=== PATIENT | male | born 1965 | race Caucasian/White ===

== ENCOUNTER 2017-01-19 22:42 | Inpatient (IN) | payer OTHER ==
[~2017-01-19] VITALS: Ht 185.4 cm; Wt 81.6 kg
[2017-01-19 23:39] LABS: *AMPHETAMINE, URINE NEGATIVE (NEGATIVE); *BARBITURATE, URINE NEGATIVE (NEGATIVE); *CANNABINOID, URINE NEGATIVE (NEGATIVE); *COCCAINE, URINE NEGATIVE (NEGATIVE); *OPIATE, URINE NEGATIVE (NEGATIVE); *PHENCYCLIDINE SCREEN,URINE NEGATIVE (NEGATIVE)
[2017-01-20] MEDS ORDERED: LORAZEPAM 1 MG TABLET PO PRN ×2
[2017-01-20] MEDS ORDERED: LOPERAMIDE HCL 2 MG CAPSULE PO PRN ×2
[2017-01-20] MEDS ORDERED: DICYCLOMINE HCL 20 MG TABLET PO PRN
[2017-01-20] MEDS ORDERED: diphenhydrAMINE 50 MG CAPSULE PO PRN
[2017-01-20] MEDS ORDERED: IBUPROFEN 400 MG TABLET PO PRN
[2017-01-20] MEDS ORDERED: MAGNESIUM HYDROXIDE 30 ML LIQUID UDC PO PRN
[2017-01-20] MEDS ORDERED: LORAZEPAM 2 MG/1 ML VIAL IM PRN
[2017-01-20] MEDS ORDERED: MAG HYDROX/AL HYDROX/SIMETH 30 ML LIQUID UDC PO PRN
[2017-01-20] MEDS ORDERED: CLONIDINE HCL 0.1 MG TABLET PO PRN
--- NOTE | 2017-01-20 | NUR ---
ADMISSION NOTE : Pt. is 51 years old male, admitted on 01/19/2017 at 23:50 to [facility] for medically supervised withdrawal from alcohol. Pt. drinks VODKA 500ml PO QD since 12/2016, last dose is 200ml today, pt. states to use alcohol since 2011. Pt. is Full Code , on Reg.diet, NKA for meds and food. Pt. was able to provide urine drug screen - negative, blood alcohol level is increased- see PC chart for details. His Primary care Provider is from [facility]. Pt. denies falls within past 12 months, denies hospitalizations within past 30 days, denies history of seizures, refused vaccinations for years. Pt. confirms history of visual hallucinations when intoxicated, last one was on 01/17/2017. Education provided on substance abuse, fall risk, Hep.C. Pt. was oriented to his room and the unit, encourage to notify staff with any concern. Pt. takes Viagra as only one prescribed home medication. Upon admission YG=669/95, HR=86, Temp=98.2, RR=16, SpO2=98% with RA, Pipzrr=[id number], Height=6'1'', denies any pain, CIWA=3. Pupils are 3-4mm with a good reaction to the light, Skin is warm and dry, no visible tremor observed. Pt. denies nausea, vomiting and diarrhea. Safety measures in place : bed on lowest position with side rails x2 up for safety, call light within reach. Will continue to monitor closely and offer help. Substance Abuse History as follow : Vodka 500ml POQD s 12/2016, last dose on 01/19/2017. Pt. uses alcohol since 2011. He doesn't smoke and doesn't use drugs. Tx History : x2 detox. Attempts, last one in January 2016 in [place], 3 days, left AMA. Past Medical History : pt. denies any. Family History : ETOH abuse by father.
[2017-01-20 01:14] LABS: BASOPHILS % (AUTO) 0.7 % (0.0-2.0); EOSINOPHILS # (AUTO) 0.1 K/uL (0.0-0.7); EOSINOPHILS % (AUTO) 2.3 % (0.0-7.0); HEMATOCRIT 41.1 % (40.0-50.0); HEMOGLOBIN 14.4 g/dL (14.0-18.0); LYMPHOCYTES # (AUTO) 0.7 K/uL (0.8-4.8); LYMPHOCYTES % (AUTO) 25.6 % (20.5-51.5); MEAN CORPUSCULAR HEMOGLOBIN 32.4 uug (27.0-31.0); MEAN CORPUSCULAR HGB CONC 35 g/dL (32.0-37.0); MEAN CORPUSCULAR VOLUME 92.3 fL (82.0-92.0); MONOCYTES # (AUTO) 0.3 K/uL (0.1-1.30); MONOCYTES % (AUTO) 13.4 % (0.0-11.0); NEUTROPHILS # (AUTO) 1.5 K/uL (1.8-8.9); PLATELET COUNT (AUTO) 90 K/uL (150-450); RED BLOOD CELL COUNT(AUTO) 4.46 MIL/uL (4.70-6.10); RED CELL DISTRIBUTION WIDTH 15.3 % (11.5-14.5); WHITE BLOOD COUNT (AUTO) 2.6 K/uL (4.0-11.2)
[2017-01-20 01:22] LABS: ALBUMIN 4.1 g/dL (3.4-5.0); BILIRUBIN,TOTAL 0.9 mg/dL (0.2-1.0); CALCIUM 8.5 mg/dL (8.5-10.1); CREATININE 0.8 mg/dL (0.6-1.3); MAGNESIUM 1.6 mg/dL (1.8-2.4); POTASSIUM 3.8 mmol/L (3.5-5.1); TOTAL PROTEIN, SERUM 7.2 g/dL (6.4-8.2)
[2017-01-20] MEDS ORDERED: SILD100T PO (01:31)
[2017-01-20 01:33] LABS: THYROID STIMULATING HORMONE 0.46 mIU/mL (0.358-3.740)
[2017-01-20 01:35] LABS: HIV-1 p24 ANTIGEN NON REACTIVE (NONREACTIVE); HIV-1/2 ANTIBODY NON REACTIVE (NONREACTIVE)
[2017-01-20 02:30] LABS: EOSINOPHILS % (MANUAL) 2 % (0-8); LYMPHOCYTES % (MANUAL) 26 % (20-40); MONOCYTES % (MANUAL) 14 % (2-10); NEUTROPHILS % (MANUAL) 58 % (42-75)
[2017-01-20 02:31] LABS: ANISOCYTOSIS 1+; PLATELET ESTIMATE DECREASED
[2017-01-20 04:00] VITALS: BP 121/74
[2017-01-20] MEDS ORDERED: MAGNESIUM OXIDE 400 MG TABLET PO ONE (06:00)
[2017-01-20] MEDS ORDERED: THIAMINE HCL 200 MG/2 ML VIAL IM ONE (06:00)
--- NOTE | 2017-01-20 06:41 | NUR ---
END OF SHIFT NOTE : Pt. is 51 years old male, admitted on 01/19/2017 at 23:50 to [facility] for medically supervised withdrawal from alcohol. Pt. drinks VODKA 500ml PO QD since 12/2016, last dose is 200ml today, pt. states to use alcohol since 2011. Pt. is Full Code , on Reg.diet, NKA for meds and food. Pt. was able to provide urine drug screen - negative, blood alcohol level is increased- see PC chart for details Pt. confirms history of visual hallucinations when intoxicated, last one was on 01/17/2017. Pt remains compliant with the treatment plan. Pt denies nausea, vomiting and diarrhea. No PRNs were given during my shift. One time orders VitB IM and Po292ru given as ordered (Mg level was 1.6)V/S remain WNL. RR=16, even and unlabored, lungs clear upon auscultation, abdomen soft and non- distended. Pt denies nausea, vomiting and diarrhea. LAST CIWA= at 0400 , INTAKE= 100ml, voided x 1, slept 6 hours. Safety measures in place : bed on lowest position with side rails x2 up for safety, call light within reach. Will continue to monitor closely and offer help.
--- NOTE | 2017-01-20 07:41 | NUR ---
START OF SHIFT NOTE: Received report from warehouse worker 2nd shift nurse. Pt is a 51 yo male admitted 01-19-17 for ETOH dependence. Pt is on prn's only at this time. Pt is alert and oriented X4. Color good, skin warm and dry. Respirations even and unlabored. Safety precautions observed. call light within reach. Will continue to monitor.
[2017-01-20 08:00] VITALS: BP 135/86
[2017-01-20] MEDS ORDERED: TUBERCULIN,PURIF.PROT.DERIV. 5 TU/0.1 ML TEST ID ONE (09:00)
--- NOTE | 2017-01-20 09:00 | NUR ---
TB test administered LFA
[2017-01-20] MEDS: THIAMINE HCL 100 MG TABLET PO SCH (09:06)
[2017-01-20] MEDS: MULTIVITAMINS,THERAPEUTIC TABLET PO SCH (09:06)
[2017-01-20] MEDS: FOLIC ACID 1 MG TABLET PO SCH (09:07)
--- NOTE | 2017-01-20 09:15 | NUR ---
Pt c/o severe anxiety. Tremors noted. CIWA 8 Ativan 1mg po prn administered.
--- NOTE | 2017-01-20 09:54 | NUR ---
Pt states anxiety has improved after Ativan 1mg po prn. CIWA 6
--- NOTE | 2017-01-20 11:30 | NUR ---
Pt started on Ativan taper. CIWA 12 Ativan 2mg po administered.
[2017-01-20] MEDS: LORAZEPAM 1 MG TABLET PO SCH ×3 (11:42→20:35)
[2017-01-20 12:58] VITALS: BP 120/72
[2017-01-20] MEDS ORDERED: LORAZEPAM 1 MG TABLET PO SCH (13:00)
[2017-01-20] MEDS ORDERED: TRAZODONE 50 MG TABLET PO PRN (14:30)
[2017-01-20 18:40] VITALS: BP 120/72
--- NOTE | 2017-01-20 19:13 | NUR ---
END OF SHIFT NOTE: Report given to night club manager nurse. Pt is a 51 yo male admitted 01-19-17 for ETOH dependence. Pt started on 5 day Ativan taper. Tolerating well. Pt is alert and oriented X4. Color good, skin warm and dry. Respirations even and unlabored. Vital signs have remained stable throughout shift. Last CIWA 10 @ 1500. Pt given Ativan 1 mg po prn @ 0915. Safety precautions observed. call light within reach.
--- NOTE | 2017-01-20 19:37 | NUR ---
RN note PRN Trazodone Pt verbalized "I have not slept in 5 days. I want to take the Trazodone now." Pt noted to be slightly anxious and with gross tremors observed. Administered Trazodone 50 mg PO. No SOB noted. Will monitor and reassess.
[2017-01-20 20:00] VITALS: BP 117/77
--- NOTE | 2017-01-20 20:00 | NUR ---
Start of Shift Patient is a 51-year old, male, admitted for ETOH dependence, drinking 500 ml of Vodka daily prior to admission. Pt started 01/20/2017on 5-day Ativan, tolerates well. Pt is AAOx4, no SOB noted. Pt with anxiety . With gross tremors observed. No skin issues. Pt is ambulatory with steady gait. Fall, universal and safety prec implemented. Call light within reach. Kept pt warm, dry and comfortable. Latest CIWA=9. Will monitor.
[2017-01-21] VITALS: BP 124/83
[2017-01-21] MEDS ORDERED: diphenhydrAMINE 50 MG CAPSULE PO PRN (01:15)
[2017-01-21] MEDS: HYDROXYZINE PAMOATE 25 MG CAPSULE PO PRN ×2 (01:24→11:22)
--- NOTE | 2017-01-21 01:24 | NUR ---
MD Communication and ONE TIME BENADRYL and PRN Vistaril: Pt stated that he is unable to sleep. Trazodone PRN ineffective. MD made aware with new order for 50mg Benadryl ONE TIME. New order noted and carried out. Pt also expressed anxiety due to being unable to sleep. Pt stated that he usually has episodes of inability to sleep during the first 2-3 days of detox. Vistaril PRN given as ordered. Will continue to monitor.
--- NOTE | 2017-01-21 02:50 | NUR ---
RN note reassess Pt asleep on bed, with no facial grimacing nor SOB noted.
[2017-01-21 04:00] VITALS: BP 132/86
--- NOTE | 2017-01-21 07:16 | NUR ---
End of Shift Patient is a 51-year old, male, admitted for ETOH dependence, drinking 500 ml of Vodka daily prior to admission. Pt started 01/20/2017on 5-day Ativan, tolerates well. Pt is AAOx4, no SOB noted. Pt with anxiety . With gross tremors observed. No skin issues. Pt is ambulatory with steady gait. Fall, universal and safety prec implemented. Call light within reach. Kept pt warm, dry and comfortable. Latest CIWA=6, slept for 9 hours. Endorsed to AM shift nurse for continuity of care.
--- NOTE | 2017-01-21 07:20 | NUR ---
Start of Shift Report from the night nurse: pt is 51 y/o male her for Etoh r/t Vodka 500mL/d; 5 day Ativan taper ordered and started 01/20/17. Pt is a full code, regular diet, NKA, fall and seizure precautions ordered. HHx: relapsed and detox x2 at other facilities. V/S stable. Skin is intact. PRN Trazodone and Benadryl given last night for sleep. No new orders or abnormal labs endorsed to me. Last CIWA 6. Pt is asleep in room. Will cont. to monitor the pt.
[2017-01-21 08:00] VITALS: BP 123/97
[2017-01-21 08:49] LABS: BASOPHILS # (AUTO) 0.1 K/uL (0.0-0.2); BASOPHILS % (AUTO) 1.7 % (0.0-2.0); EOSINOPHILS # (AUTO) 0.1 K/uL (0.0-0.7); EOSINOPHILS % (AUTO) 2.3 % (0.0-7.0); HEMATOCRIT 41.3 % (40.0-50.0); HEMOGLOBIN 14.2 g/dL (14.0-18.0); LYMPHOCYTES # (AUTO) 0.8 K/uL (0.8-4.8); LYMPHOCYTES % (AUTO) 22.9 % (20.5-51.5); MEAN CORPUSCULAR HEMOGLOBIN 32.2 uug (27.0-31.0); MEAN CORPUSCULAR HGB CONC 35 g/dL (32.0-37.0); MEAN CORPUSCULAR VOLUME 93.5 fL (82.0-92.0); MONOCYTES # (AUTO) 0.5 K/uL (0.1-1.30); MONOCYTES % (AUTO) 13.3 % (0.0-11.0); NEUTROPHILS % (AUTO) 59.8 % (38.5-71.5); PLATELET COUNT (AUTO) 96 K/uL (150-450); RED BLOOD CELL COUNT(AUTO) 4.42 MIL/uL (4.70-6.10); RED CELL DISTRIBUTION WIDTH 15.5 % (11.5-14.5)
--- NOTE | 2017-01-21 08:50 | NUR ---
PRN Medication Administration Pt c/o MARRERO 02/20 pain; PRN Motrin 600mg PO given as ordered. Will reassess in 1H. Addendum: 01/21/17 at 1721 by ROSALBA MURGUIA RN ERROR: Tylenol 650mg given PRN for MARRERO.
[2017-01-21] MEDS: LORAZEPAM 1 MG TABLET PO SCH ×3 (08:51→21:17)
[2017-01-21] MEDS: MULTIVITAMINS,THERAPEUTIC TABLET PO SCH (08:51)
[2017-01-21] MEDS: ACETAMINOPHEN 325 MG TABLET PO PRN (08:51)
[2017-01-21] MEDS: FOLIC ACID 1 MG TABLET PO SCH (08:51)
[2017-01-21 09:06] LABS: WHITE BLOOD COUNT (AUTO) 3.5 K/uL (4.0-11.2)
[2017-01-21 09:07] LABS: ALBUMIN 3.8 g/dL (3.4-5.0); BILIRUBIN,DIRECT 0.3 mg/dL (0.0-0.2); BILIRUBIN,TOTAL 1.5 mg/dL (0.2-1.0); CALCIUM 9.2 mg/dL (8.5-10.1); CREATININE 0.8 mg/dL (0.6-1.3); MAGNESIUM 1.4 mg/dL (1.8-2.4); PHOSPHOROUS 3.6 mg/dL (2.5-4.9); POTASSIUM 3.4 mmol/L (3.5-5.1); TOTAL PROTEIN, SERUM 6.9 g/dL (6.4-8.2)
--- NOTE | 2017-01-21 09:50 | NUR ---
Reassessment Pt is in room resting in bed and denies MARRERO or pain; Ibuprofen is effective. Will cont. to monitor the pt. Addendum: 01/21/17 at 1723 by ROSALBA MURGUIA RN ERROR: Tylenol 650mg given PRN at 0850am and is effective since pt denies pain .
[2017-01-21 09:59] LABS: BAND % (MANUAL) 5 % (0-10); EOSINOPHILS % (MANUAL) 3 % (0-8); LYMPHOCYTES % (MANUAL) 25 % (20-40); METAMYELOCYTES % 1 % (0-1); MONOCYTES % (MANUAL) 11 % (2-10); NEUTROPHILS % (MANUAL) 55 % (42-75)
[2017-01-21 10:01] LABS: ANISOCYTOSIS 1+; PLATELET ESTIMATE DECRE
[2017-01-21 10:02] LABS: STOMATOCYTES 2+
[2017-01-21] MEDS ORDERED: MAGNESIUM OXIDE 400 MG TABLET PO ONE ×2 (10:15→21:00)
[2017-01-21] MEDS ORDERED: POTASSIUM CHLORIDE 20 MEQ TAB.PRT.SR PO ONE (10:15)
[2017-01-21] MEDS: THIAMINE HCL 100 MG TABLET PO SCH (11:22)
--- NOTE | 2017-01-21 11:30 | NUR ---
PRN Medication Administration Pt is in room with tremors, very anxious, agitated and irritable since he wants to know the psychiatrist schedule time to see him since he wants a new medication to help him sleep tonight; I notified Dr. Lazar and Dr. Sethi and PRN Vistaril 50mg given to pt for the first time so educated the pt on the actions and the SE's of the medication. Will reassess in 1 hour.
[2017-01-21 12:00] VITALS: BP 118/81
--- NOTE | 2017-01-21 12:30 | NUR ---
Reassessment Pt is room resting in bed and watching TV while snacking & waiting for lunch, no nonverbal cues of anxiety or irritability present; Vistaril is effective. Will cont. to monitor the pt.
[2017-01-21] MEDS ORDERED: HYDROXYZINE PAMOATE 25 MG CAPSULE PO PRN (13:15)
--- NOTE | 2017-01-21 14:45 | NUR ---
PRN Medication Administration Pt is lying in bed very agitated with observed tremors present, flushed, V/S stable yet HR 102 with anxiety, c/o not seeing the psychiatrist and is extremely worried about not getting a medication for sleep tonight; I encouraged the pt to do relaxation techniques, repeat x3 the explanation of the Dr. Sethi's daily eval. required, PRN Clonidine 0.1mg given with ordered Ativan taper and scheduled 1500 medications. Will reassess in 1H.
[2017-01-21] MEDS: GABAPENTIN 300 MG CAPSULE PO SCH (14:47)
[2017-01-21] MEDS ORDERED: QUETIAPINE FUMARATE 25 MG TABLET PO ONE (15:15)
--- NOTE | 2017-01-21 15:15 | NUR ---
New Orders-Seroquel New orders for Seroquel 25mg ONCE and given as ordered for the pt's anxiety, irritability & agitation per Dr. Sethi and given with 1500H scheduled meds. New orders for D/C Trazodone HS and start Seroquel 100mg PO HS, will endorse to night nurse. Will reassess in 1H.
[2017-01-21 16:00] VITALS: BP 112/77
--- NOTE | 2017-01-21 16:15 | NUR ---
Reassessment Pt is in room relaxed in bed and watching TV, no tremors or irritability and no non-verbal s/sx of anxiety present; Seroquel is effective. Will cont. to monitor the pt.
--- NOTE | 2017-01-21 19:31 | NUR ---
End of Shift Report to the night nurse: pt is 51 y/o male her for Etoh r/t Vodka 500mL/d; 5 day Ativan taper ordered and started 01/20/17. Pt is a full code, regular diet, NKA, fall and seizure precautions ordered. HHx: Non-Smoker, relapsed and detox x2 at other facilities. V/S stable. Skin is intact. PRN Tylenol given for MARRERO at 0900, Vistaril at 1120 am, clonidine 1445 and Seroquel 25mg at 1515pm. New Orders for Seroquel 25mg ONCE for sever anxiety and 100mg HS; endorsed to night nurse to give medications effective for sleep and new orders for Vistaril HS per Dr. Lazar. Pt denies chest pain and no SOB present. No hallucinations, delusions or suicidal ideations present. Pt did not attend group therapy or activities during my shift. Last CIWA 8
[2017-01-21 20:00] VITALS: BP 106/76
--- NOTE | 2017-01-21 20:00 | NUR ---
2000 Patient received resting comfortably with eyes closed and respirations quiet, unlabored at 16. Patient aroused easily for nurse assess and vital signs. Patient responds to nurse's greeting and introduction with a smile and, " Hi, how are you doing? I'm just so tired, I just want to rest". Patient's color is pink and his skin is clean, warm, dry and intact. Patient is oriented to person, place, day, date and his personal situation. Easily reoriented to time. Patient's lung sounds are clear bilaterally and active bowel sounds are noted X 4 abdominal Quads, per auscultation. Vital signs are: 98-88-16 106/78, O2 Sat 95%, CIWA 4. Patient denies any pain or other discomforts presently, and he states that he has eaten a little food from his trays today and he's taking fluids ad rajesh with no gastric issues so far. Patient was admitted on 01/19/17 for Alcohol (vodka) withdrawal and he is currently on a 5-Day Ativan medication taper, which he is apparently tolerating well. Patient offer no c/o any pain or discomfort at this time. Bed is locked and in lowest position, bed rails are up X 2 and call light within patient's easy reach. Patient's condition is stable at this time.
[2017-01-21] MEDS ORDERED: GABAPENTIN 300 MG CAPSULE PO SCH (21:00)
[2017-01-21] MEDS ORDERED: QUETIAPINE FUMARATE 100 MG TABLET PO SCH (21:00)
[2017-01-22] VITALS: BP 101/68
--- NOTE | 2017-01-22 | NUR ---
Patient refused V/S to be done at this time, when his V/S were taken at 1999. Patient is sleeping at this time. Respirations unlabored at 14.
[2017-01-22 03:06] LABS: HEPATITIS B CORE AB, IgM Negative (Negative); HEPATITIS B SURFACE AG Negative (Negative)
--- NOTE | 2017-01-22 06:30 | NUR ---
0630 Patient slept a total of 10 hours and 15 minutes. Total intake was 300 ml p.o. and he had 1 void and no stools at bathroom. No prn medications given this shift. V/SS afebrile, CIWA 4. Patient is presently resting comfortably with eyes closed and respirations even, unlabored at 14. Patient is in stable condition at this time.
[2017-01-22 07:15] LABS: ALBUMIN 3.7 g/dL (3.4-5.0); BILIRUBIN,DIRECT 0.3 mg/dL (0.0-0.2); BILIRUBIN,TOTAL 1.4 mg/dL (0.2-1.0); CALCIUM 9.5 mg/dL (8.5-10.1); CREATININE 0.9 mg/dL (0.6-1.3); MAGNESIUM 1.8 mg/dL (1.8-2.4); PHOSPHOROUS 4.3 mg/dL (2.5-4.9); POTASSIUM 4.1 mmol/L (3.5-5.1); TOTAL PROTEIN, SERUM 6.7 g/dL (6.4-8.2)
--- NOTE | 2017-01-22 07:15 | NUR ---
Start of Shift Report from the night nurse with update: pt is 51 y/o male her for Etoh r/t Vodka 500mL/d; 5 day Ativan taper ordered and started 01/20/17. Pt is a full code, regular diet, NKA, fall and seizure precautions ordered. HHx: relapsed and detox x2 at other facilities. V/S stable. Skin is intact. Scheduled Seroquel 100mg and PRN Benadryl given again last night for sleep. No new orders or abnormal labs endorsed to me. Last CIWA 4. Pt is awake in room in bed watching television. Will cont. to monitor the pt.
[2017-01-22 07:22] LABS: BASOPHILS % (AUTO) 0.7 % (0.0-2.0); EOSINOPHILS # (AUTO) 0.2 K/uL (0.0-0.7); EOSINOPHILS % (AUTO) 3.6 % (0.0-7.0); HEMATOCRIT 39.9 % (40.0-50.0); HEMOGLOBIN 14.1 g/dL (14.0-18.0); LYMPHOCYTES % (AUTO) 23.8 % (20.5-51.5); MEAN CORPUSCULAR HEMOGLOBIN 33.4 uug (27.0-31.0); MEAN CORPUSCULAR HGB CONC 36 g/dL (32.0-37.0); MEAN CORPUSCULAR VOLUME 94.3 fL (82.0-92.0); MONOCYTES # (AUTO) 0.3 K/uL (0.1-1.30); MONOCYTES % (AUTO) 8.2 % (0.0-11.0); NEUTROPHILS # (AUTO) 2.7 K/uL (1.8-8.9); NEUTROPHILS % (AUTO) 63.7 % (38.5-71.5); PLATELET COUNT (AUTO) 84 K/uL (150-450); RED BLOOD CELL COUNT(AUTO) 4.23 MIL/uL (4.70-6.10); RED CELL DISTRIBUTION WIDTH 15.8 % (11.5-14.5); WHITE BLOOD COUNT (AUTO) 4.2 K/uL (4.0-11.2)
[2017-01-22 07:25] LABS: FOLIC ACID 17.2 NG/ML (8.6-58.9)
[2017-01-22 08:00] VITALS: BP 103/75
[2017-01-22] MEDS: FOLIC ACID 1 MG TABLET PO SCH (09:29)
[2017-01-22] MEDS: MULTIVITAMINS,THERAPEUTIC TABLET PO SCH (09:29)
[2017-01-22] MEDS: GABAPENTIN 300 MG CAPSULE PO SCH ×3 (09:30→20:27)
[2017-01-22] MEDS: THIAMINE HCL 100 MG TABLET PO SCH (09:30)
[2017-01-22] MEDS: LORAZEPAM 1 MG TABLET PO SCH ×4 (09:30→20:27)
[2017-01-22 10:58] LABS: BAND % (MANUAL) 5 % (0-10); EOSINOPHILS % (MANUAL) 5 % (0-8); LYMPHOCYTES % (MANUAL) 25 % (20-40); MONOCYTES % (MANUAL) 9 % (2-10); NEUTROPHILS % (MANUAL) 56 % (42-75)
[2017-01-22 10:59] LABS: ANISOCYTOSIS 1+; PLATELET ESTIMATE SLIGHT DECREASED
[2017-01-22 12:00] VITALS: BP 115/86
[2017-01-22] MEDS: ACETAMINOPHEN 325 MG TABLET PO PRN (14:00)
--- NOTE | 2017-01-22 14:00 | NUR ---
PRN Medication Administration Pt c/o MARRERO 5/10 pain; PRN Tylenol 650mg given PRN as ordered. Will reassess in 1H.
--- NOTE | 2017-01-22 15:00 | NUR ---
Reassessment Pt is in room resting in bed, watching TV, and denies MARRERO; Tylenol is effective. Will cont. to monitor the pt.
[2017-01-22 16:00] VITALS: BP 119/78
[2017-01-22] MEDS: QUETIAPINE FUMARATE 25 MG TABLET PO SCH (16:25)
--- NOTE | 2017-01-22 19:30 | NUR ---
START OF SHIFT NOTE Pt is a 51 y/o male admitted for ETOH dependence. Pt has NKA and denies any PMH. Per day shift nurse pt was placed on a 5 day Ativan taper ( day 3) and is tolerating medication well , with no signs of s/e or a/r reported. Pt received Tylenol 650 mg PO PRN during the day shift. Last CIWA score was: 2 (1600). At this time pt is in his room laying down in bed watching television. Pt stated " I'm actually doing better. I just hope I get some decent sleep tonight." Pt denies any pain/discomfort. Pt is encouraged to notify staff of any changes in condition or of any concerns. Pt verbalized an understanding. All safety measures in place; side rails up x 2, bed locked and in low position, and call light is within reach. Will continue to monitor.
--- NOTE | 2017-01-22 19:31 | NUR ---
End of Shift Report to the night nurse: pt is 51 y/o male her for Etoh r/t Vodka 500mL/d; 5 day Ativan taper ordered and started 01/20/17. Pt is a full code, regular diet, NKA, fall and seizure precautions ordered. HHx: Non-Smoker, relapsed and detox x2 at other facilities. V/S stable. Skin is intact. PRN Tylenol given for MARRERO at this afternoon. New Orders for modified Seroquel dose HS and endorsed to night nurse to give HS medications at 2000 per pt. Pt denies chest pain and no SOB present. No hallucinations, delusions or suicidal ideations present. Pt did not attend group therapy or activities during my shift. Last CIWA 4
[2017-01-22 20:00] VITALS: BP 115/80
[2017-01-22] MEDS: QUETIAPINE FUMARATE 100 MG TABLET PO SCH (20:28)
--- NOTE | 2017-01-23 | NUR ---
CIWA AND VITALS REFUSED Pt refused to assessed and have vitals taken at this time. Pt was encouraged x 3 with risks and benefits explained, but the pt still declined. All safety measures in place. Will continue to monitor. Addendum: 01/23/17 at 0232 by SARA BRASWELL LVN Amended: Links added.
--- NOTE | 2017-01-23 04:00 | NUR ---
CIWA AND VITALS REFUSED Pt refused to assessed and have vitals taken at this time. Pt was encouraged x 3 with risks and benefits explained, but the pt still declined. All safety measures in place. Will continue to monitor. Addendum: 01/23/17 at 0541 by SARA BRASWELL LVN Amended: Links added.
--- NOTE | 2017-01-23 07:19 | NUR ---
END OF SHIFT NOTE Pt is a 51 y/o male admitted for ETOH dependence. Pt has NKA and denies any PMH. Pt was placed on a 5 day Ativan taper ( day 4) and is tolerating medication well , with no signs of s/e or a/r reported. Pt didn't receive any PRNS during the shift. Last CIWA score was: 1 (1999). Pt slept for a total of 11 hours. All safety measures in place; side rails up x 2, bed locked and in low position, and call light is within reach. Endorsed to the oncoming nurse.
--- NOTE | 2017-01-23 07:28 | NUR ---
START OF SHIFT NOTE: Received report from night nurse nurse. Pt is a 51 y/o male admitted 01-19-17 for ETOH dependence. Pt is on a 5 day Ativan taper. Tolerating well. Pt is alert and oriented X4. Color good, skin warm and dry. Respirations even and unlabored. Safety precautions observed. Call light within reach. Will continue to monitor.
[2017-01-23 08:23] VITALS: BP 117/83
[2017-01-23] MEDS: THIAMINE HCL 100 MG TABLET PO SCH (08:28)
[2017-01-23] MEDS: MULTIVITAMINS,THERAPEUTIC TABLET PO SCH (08:28)
[2017-01-23] MEDS: GABAPENTIN 300 MG CAPSULE PO SCH ×3 (08:29→20:15)
[2017-01-23] MEDS: LORAZEPAM 1 MG TABLET PO SCH ×3 (08:29→20:16)
[2017-01-23] MEDS: FOLIC ACID 1 MG TABLET PO SCH (08:29)
--- NOTE | 2017-01-23 09:00 | NUR ---
VSS CIWA 6. Pt with anxiety and fine upper extremity tremors.
[2017-01-23] MEDS: HYDROXYZINE PAMOATE 25 MG CAPSULE PO PRN (10:37)
--- NOTE | 2017-01-23 10:38 | NUR ---
PRN MEDICATION PRN 50 mg [address] given per Dr. Lazar order. Pt presents with anxiety and tremors. RR even and unlabored. Bed locked and in lowest position with call ashraf within reach. Will endorse to primary nurse to monitor for effectiveness.
--- NOTE | 2017-01-23 11:14 | NUR ---
Pt states feels less anxious after Vistaril prn. Resting in bed.
[2017-01-23 12:59] VITALS: BP 128/78
[2017-01-23] MEDS: QUETIAPINE FUMARATE 25 MG TABLET PO SCH (16:49)
[2017-01-23 17:39] VITALS: BP 128/78
--- NOTE | 2017-01-23 18:50 | NUR ---
END OF SHIFT NOTE: Report given to cook night nurse . Pt is a 51 y/o male admitted 01-19-17 for ETOH dependence. Pt is on a 5 day Ativan taper. Tolerating well. Pt is alert and oriented X4. Color good, skin warm and dry. Respirations even and unlabored. Vital signs have remained stable throughout shift. Last CIWA 7 @ 1500. PRN 50 mg Vistaril po given @ 1040. Safety precautions observed. Call light within reach.
--- NOTE | 2017-01-23 19:45 | NUR ---
START OF SHIFT NOTE Pt is a 51 y/o male admitted for ETOH dependence. Pt has NKA and denies any PMH. Per day shift nurse pt continues on a 5 day Ativan taper ( day 4) and is tolerating medication well , with no signs of s/e or a/r reported. Pt received Vistaril 50 mg PO PRN during the day shift. Last CIWA score was: 7 (1600). At this time pt is in his room laying down in bed watching television. Pt stated " I'm still having a little anxiety. I can wait for my medication." Pt denies any pain/discomfort. Pt is encouraged to notify staff of any changes in condition or of further any concerns. Pt verbalized an understanding. All safety measures in place; side rails up x 2, bed locked and in low position, and call light is within reach. Will continue to monitor.
[2017-01-23 20:00] VITALS: BP 107/73
[2017-01-23] MEDS: QUETIAPINE FUMARATE 100 MG TABLET PO SCH (20:16)
--- NOTE | 2017-01-24 | NUR ---
CIWA AND VITALS REFUSED Pt refused to be assessed and have vitals taken at this time. Pt was encouraged x 3 with risks and benefits explained, but the pt still declined. All safety measures in place. Will continue to monitor. Addendum: 01/24/17 at 0056 by SARA BRASWELL LVN Amended: Links added.
--- NOTE | 2017-01-24 04:32 | NUR ---
CIWA AND VITALS REFUSED Pt refused to be assessed and have vitals taken at this time. Pt was encouraged x 3 with risks and benefits explained, but the pt still declined. All safety measures in place. Will continue to monitor. Addendum: 01/24/17 at 0435 by SARA BRASWELL LVN Amended: Links added.
--- NOTE | 2017-01-24 05:19 | NUR ---
NURSE COMMUNICATION Pt is currently asleep in bed with no signs of discomfort/distress noted. Pt's breathing is even and unlabored. All safety measures in place. Pt endorsed (in stable condition) to charge nurse to ensure monitoring is continued.
--- NOTE | 2017-01-24 07:01 | NUR ---
End of shift note: Pt is 51M, admitted for ETOH Dependence on 01/19/17. Pt is full code, on regular diet. Pt noted with NKA. Pt reports no pertinent medical hx. Pt is currently on 5-day Ativan taper to manage withdrawal symptoms. Pt is compliant with plan of care. Pt slept for 8 hours. Respirations even and unlabored. Last CIWA was 2. Fall precautions observed. Bed in lowest position. Side rails up x2. Call light functioning and within reach. All needs attended and met. Will endorse to day shift nurse.
--- NOTE | 2017-01-24 07:18 | NUR ---
Start of Shift Notes: Received patient in his room. Alert and oriented x 4. Verbally responsive. Able to make his needs known. Respirations even and unlabored. No SOB noted. Skin warm and dry to touch. Abdomen soft and non-distended with (+) BS in all 4 quadrants. No complains of N/V/D or constipation noted. Bladder non-distended. No complains of dysuria noted. Voids independently. Ambulatory ad rajesh with steady gait. Patient is a 51 year old male admitted for ETOH dependence who was placed on a 5-day Ativan taper as ordered. No adverse reactions noted. Denies any past medical hx. FULL CODE. Regular diet. On fall and seizure precautions. No seizure history. Educated patient on his current plan of care for the day and his medication regimen. Encouraged oral fluid intake and encouraged group participation to learn new skills to prevent relapse. Will continue to monitor closely.
[2017-01-24 07:23] LABS: BASOPHILS % (AUTO) 0.9 % (0.0-2.0); EOSINOPHILS # (AUTO) 0.2 K/uL (0.0-0.7); EOSINOPHILS % (AUTO) 4.3 % (0.0-7.0); HEMATOCRIT 40.2 % (40.0-50.0); HEMOGLOBIN 13.7 g/dL (14.0-18.0); LYMPHOCYTES # (AUTO) 1.1 K/uL (0.8-4.8); LYMPHOCYTES % (AUTO) 30.2 % (20.5-51.5); MEAN CORPUSCULAR HEMOGLOBIN 32.2 uug (27.0-31.0); MEAN CORPUSCULAR HGB CONC 34 g/dL (32.0-37.0); MEAN CORPUSCULAR VOLUME 94.6 fL (82.0-92.0); MONOCYTES # (AUTO) 0.4 K/uL (0.1-1.30); MONOCYTES % (AUTO) 10.6 % (0.0-11.0); PLATELET COUNT (AUTO) 102 K/uL (150-450); RED BLOOD CELL COUNT(AUTO) 4.25 MIL/uL (4.70-6.10); RED CELL DISTRIBUTION WIDTH 15.7 % (11.5-14.5); WHITE BLOOD COUNT (AUTO) 3.7 K/uL (4.0-11.2)
[2017-01-24 07:42] LABS: ALBUMIN 3.7 g/dL (3.4-5.0); BILIRUBIN,DIRECT 0.2 mg/dL (0.0-0.2); BILIRUBIN,TOTAL 0.8 mg/dL (0.2-1.0); CALCIUM 9.2 mg/dL (8.5-10.1); MAGNESIUM 1.9 mg/dL (1.8-2.4); PHOSPHOROUS 4.5 mg/dL (2.5-4.9); POTASSIUM 4.3 mmol/L (3.5-5.1)
[2017-01-24 08:00] VITALS: BP 141/65
[2017-01-24] MEDS: LORAZEPAM 1 MG TABLET PO SCH ×2 (08:52→20:15)
[2017-01-24] MEDS: FOLIC ACID 1 MG TABLET PO SCH (08:52)
[2017-01-24] MEDS: THIAMINE HCL 100 MG TABLET PO SCH (08:52)
[2017-01-24] MEDS: MULTIVITAMINS,THERAPEUTIC TABLET PO SCH (08:52)
[2017-01-24] MEDS: GABAPENTIN 300 MG CAPSULE PO SCH ×3 (08:53→20:15)
[2017-01-24] MEDS: HYDROXYZINE PAMOATE 25 MG CAPSULE PO PRN (08:53)
--- NOTE | 2017-01-24 08:53 | NUR ---
Vistaril 50 mg PO given: Patient noted with complains of anxiety. VS stable. Redirected patient with non-pharmacological interventions with no help. Medicated patient with Vistaril 50 mg PO as ordered. Will monitor for effectiveness.
--- NOTE | 2017-01-24 09:53 | NUR ---
Re-assessment: Per patient, PRN Vistaril 50 mg PO was effective in reducing patient's anxiety.
--- NOTE | 2017-01-24 11:41 | NUR ---
Labs: Notified Dr. Lazar of patient's AST 633 and ALT 585H. NNO made. Patient denies any abdominal discomfort noted.
[2017-01-24 12:00] VITALS: BP 130/55
[2017-01-24] MEDS: ACETAMINOPHEN 325 MG TABLET PO PRN ×2 (14:29→20:15)
--- NOTE | 2017-01-24 14:30 | NUR ---
Tylenol 650 mg PO given: Patient noted with complain of 4/10 headache. Requested for Tylenol. Tylenol 650 mg PO given as ordered. Will monitor for effectiveness.
--- NOTE | 2017-01-24 15:01 | NUR ---
Mid Shift Note: ] CIWA 3. Patient in his room. Encouraged to go to group.
--- NOTE | 2017-01-24 15:30 | NUR ---
Re-assessment: Per patient, PRN Tylenol was effective in relieving headache. PL 0/10.
[2017-01-24 16:00] VITALS: BP 121/87
[2017-01-24] MEDS: QUETIAPINE FUMARATE 25 MG TABLET PO SCH (16:10)
--- NOTE | 2017-01-24 18:46 | NUR ---
End of Shift Notes: Patient is a 51 year old male admitted for ETOH dependence who was placed on a 5-day Ativan taper as ordered. Tolerating taper well. No adverse reactions noted. Prior to admission, patient was using 500cc of Vodka since 2011. VS monitored q 4 hours. No significant abnormalities noted. Withdrawal symptoms were closely monitored. Patient presented with tremors, anxiety and agitation. Initial CIWA 6. Last CIWA 3. Medicated patient with Vistaril 50 mg PO at 0853 for anxiety with help after 1 hour. Patient requires encouragement to attend group and activities due to episodes of self isolation. Tylenol 650mg PO given at 4/10 headache at 1430 with help after 1 hour. Per patient, Ativan has been helping him with his withdrawal symptoms. Labs reviewed. AST/ALT elevated. Dr. Lazar aware. NNO made. No complains of abdominal pain or discomfort. All needs met and attended. Will continue to monitor closely.
--- NOTE | 2017-01-24 19:30 | NUR ---
START OF SHIFT NOTE : Patient is a 51 year old male admitted for ETOH dependence who was placed on a 5-day Ativan taper as ordered. Tolerating taper well. No adverse reactions noted. Last CIWA 3 at 16:00. Patient requires encouragement to attend group and activities due to episodes of self isolation. No complains of abdominal pain or discomfort. Pt remains compliant with the treatment plan. Pt denies nausea, vomiting and diarrhea. N V/S remain WNL. RR=16, even and unlabored. Safety measures in place : bed on lowest position with side rails x2 up for safety, call light within reach. Will continue to monitor closely and offer help.
[2017-01-24 20:00] VITALS: BP 120/84
[2017-01-24] MEDS: QUETIAPINE FUMARATE 100 MG TABLET PO SCH (20:15)
--- NOTE | 2017-01-24 21:00 | NUR ---
PRN TYLENOL Pt. complains of body ache 03/23. PRN TYLENOL, given as ordered. Safety measures in place : bed on lowest position with side rails x2 up for safety, call light within reach. Will continue to monitor closely and offer help.
--- NOTE | 2017-01-24 21:55 | NUR ---
REASSESSMENT PRN TYLENOL, Pt. confirms decreased body ache to 2-3/10, is ready to sleep. Safety measures in place : bed on lowest position with side rails x2 up for safety, call light within reach. Will continue to monitor closely and offer help.
[2017-01-25 04:00] VITALS: BP 103/74
--- NOTE | 2017-01-25 06:45 | NUR ---
END OF SHIFT NOTE : Patient is a 51 year old male admitted for ETOH dependence who was placed on a 5-day Ativan taper as ordered. Tolerating taper well. No adverse reactions noted. Last CIWA 1 at 04:00. Patient requires encouragement to attend group and activities due to episodes of self isolation. Pt denies nausea, vomiting and diarrhea. PRN TYLENOL was given during my shift. V/S remain WNL. RR=16, even and unlabored, lungs clear upon auscultation, abdomen soft and non- distended. INTAKE= 1000 ml, voided x 3, slept 3 hours. Safety measures in place : bed on lowest position with side rails x2 up for safety, call light within reach. Will continue to monitor closely and offer help.
[2017-01-25 08:00] VITALS: BP 133/90
[2017-01-25] MEDS: MULTIVITAMINS,THERAPEUTIC TABLET PO SCH (09:06)
[2017-01-25] MEDS: THIAMINE HCL 100 MG TABLET PO SCH (09:06)
[2017-01-25] MEDS: GABAPENTIN 300 MG CAPSULE PO SCH ×3 (09:06→20:13)
[2017-01-25] MEDS: FOLIC ACID 1 MG TABLET PO SCH (09:06)
[2017-01-25] MEDS: HYDROXYZINE PAMOATE 25 MG CAPSULE PO PRN (09:07)
[2017-01-25] MEDS: ACETAMINOPHEN 325 MG TABLET PO PRN (09:07)
--- NOTE | 2017-01-25 09:07 | NUR ---
Tylenol 650mg PO/Vistaril 50 mg PO given: Patient's CIWA 3. Complains of increased anxiety. Also complains of 4/10 headache. Non-pharmacological interventions provided but ineffective. Medicated patient with Tylenol 650 mg PO as ordered and Vistaril 50 mg PO as ordered. Will monitor for effectiveness.
--- NOTE | 2017-01-25 10:07 | NUR ---
Re-assessment: Per patient, PRN Vistaril and Tylenol were effective in reducing anxiety and headache. PL is 0/10. PRN Tylenol and Vistaril were effective.
[2017-01-25 12:00] VITALS: BP 125/92
[2017-01-25] MEDS ORDERED: QUET100T PO (12:06)
[2017-01-25] MEDS ORDERED: Gabapentin PO (12:06)
[2017-01-25] MEDS ORDERED: HYDR-3895 PO (12:06)
[2017-01-25] MEDS ORDERED: QUET25TA PO (12:06)
[2017-01-25 14:24] LABS: *AMPHETAMINE, URINE NEGATIVE (NEGATIVE); *BARBITURATE, URINE NEGATIVE (NEGATIVE); *CANNABINOID, URINE NEGATIVE (NEGATIVE); *COCCAINE, URINE NEGATIVE (NEGATIVE); *OPIATE, URINE NEGATIVE (NEGATIVE); *PHENCYCLIDINE SCREEN,URINE NEGATIVE (NEGATIVE)
[2017-01-25 16:00] VITALS: BP 122/87
[2017-01-25] MEDS: QUETIAPINE FUMARATE 25 MG TABLET PO SCH (16:48)
[2017-01-25 18:29] LABS: ALBUMIN 3.7 g/dL (3.4-5.0); BILIRUBIN,DIRECT 0.2 mg/dL (0.0-0.2); BILIRUBIN,TOTAL 0.4 mg/dL (0.2-1.0); TOTAL PROTEIN, SERUM 6.9 g/dL (6.4-8.2)
--- NOTE | 2017-01-25 18:51 | NUR ---
End of Shift Notes: Patient is a 51 year old male admitted for ETOH dependence who was placed on a 5-day Ativan taper as ordered. Tolerating taper well. No adverse reactions noted. Completed taper and will be discharging tomorrow. Prior to admission, patient was using 500cc of Vodka since 2011. VS monitored q 4 hours. No significant abnormalities noted. Withdrawal symptoms were closely monitored. Patient presented with tremors, anxiety and agitation. Initial CIWA 3. Last CIWA 1. Medicated patient with Vistaril 50 mg and Tylenol 650 mg PO at 0907 for anxiety and headache with help after 1 hour. Patient requires encouragement to attend group and activities due to episodes of self isolation. Per patient, Ativan has been helping him with his withdrawal symptoms. No complains of abdominal pain or discomfort. All needs met and attended. Will continue to monitor closely.
--- NOTE | 2017-01-25 19:30 | NUR ---
START OF SHIFT NOTE : Patient is a 51 year old male admitted for ETOH dependence who completed his 5-day Ativan taper as ordered, tolerated taper well. No adverse reactions noted. Last CIWA=0 at 16:00. Patient requires encouragement to attend group and activities due to episodes of self isolation. No complains of abdominal pain or discomfort. Pt remains compliant with the treatment plan. Pt denies nausea, vomiting and diarrhea. N V/S remain WNL. RR=16, even and unlabored. Pt. will be D/C tomorrow. Safety measures in place : bed on lowest position with side rails x2 up for safety, call light within reach. Will continue to monitor closely and offer help.
[2017-01-25 20:00] VITALS: BP 125/88
[2017-01-25] MEDS: QUETIAPINE FUMARATE 100 MG TABLET PO SCH (20:14)
[2017-01-26 04:00] VITALS: BP 141/90
--- NOTE | 2017-01-26 07:30 | NUR ---
Discharge note : Pt. is in stable condition , VS WNL, skin is intact, denies any suicidal or homicidal ideations, all discharge papaer work signed and dated, pt was discharged from [facility] 01/26/2017 at 0730. Pt. left the building with all of her medications, belonings and prescriptions. notified.
== END 2017-01-26 07:30 | disposition home or self-care (01) | DRG 895 ==
LOC: SRC 22:42
PROVIDERS: ADMIT Internal Medicine; ATTEND Internal Medicine
PROC: HZ2ZZZZ Detoxification Services for Substance Abuse Treatment (ICD-10-PCS; principal; 2017-01-19)
PROC: HZ31ZZZ Individual Counseling for Substance Abuse Treatment, Behavioral (ICD-10-PCS; 2017-01-22)
DX: F10.230 Alcohol dependence with withdrawal, uncomplicated (principal); D61.818 Other pancytopenia; K70.10 Alcoholic hepatitis without ascites; Y90.8 Blood alcohol level of 240 mg/100 ml or more; E83.42 Hypomagnesemia; E87.6 Hypokalemia; D53.9 Nutritional anemia, unspecified; G47.00 Insomnia, unspecified
CPT/HCPCS: 36415; 80307; 82746; 83550; 83690; 83735; 84100; 84443; 85025; 86580; 86705; 87340; 87806; G6040-TC; J3411; Q0163